=== PATIENT | male | born 1955 | race Caucasian/White ===

== ENCOUNTER 2018-08-13 20:22 | Emergency (ER) | payer OTHER ==
--- NOTE | 2018-08-13 21:09 | ED Physician Documentation ---
Chest Pain - HPI Stated Complaint: Short of breath, Light head, Diaphoresis Chief Complaint: Chest Pain Additional Information: Patient presents to ED with chest pressure, shortness of breath and dizziness since 1430 this afternoon. Patient states his symptoms began around 1430 today after he thought he was going to be arrested. The chest pressure was substernal, nonradiating, 5/10 with associated shortness of breath and ultimately lightheadedness. He states his symptoms resolved once he arrived to the hospital and he felt like he was in a place he could not be arrested. He requests to be admitted to the hospital until August 29, which is his court date, so he cannot be arrested. Onset: hours (7) Timing: sudden onset, resolved on arrival to ED Duration: constant Last known Well Date: 08/13/18 Last Known Well Time: 14:29 Context: emotional upset Severity: moderate Quality: pressure Chest Pain Radiation: no radiation Chest Pain Signs/Symptoms: diaphoresis, dizziness, dyspnea. denies: nausea, vomiting Worsened By: nothing Relieved By: nothing - ROS CONST: none MS/LYMPH: none GI/: none EYES/ENT: none SKIN/ENDO: none NEURO/PSYCH: anxiety - PAST HX OK risk factors: hypertension, diabetes Type 2, other (anxiety/depression) DVT/PE Risk Factors: none TAD/AAA risk factors: none Neuro deficit: none GI disease: none Lung disease: none Surgeries/Procedures: none Allergies/Adverse Reactions: Allergies Allergy/AdvReac Type Severity Reaction Status Date / Time No Known Drug Allergies Allergy Verified 08/13/18 20:49 Home Medications: Ambulatory Orders Medication Instructions Recorded Citalopram Hydrobromide [Celexa] 40 mg PO DAILY 09/03/13 Insulin Glargine,Hum.rec.anlog 30 units SQ HS 09/03/13 [Lantus] Lisinopril 5 mg PO DAILY 09/03/13 Metformin HCl [Glucophage] 1,000 mg PO BID 09/03/13 Paliperidone Palmitate [Invega 78 mg IM WEEK 09/03/13 Sustenna] Vits96/Iron Fum/Folic 1 each PO BID 09/03/13 [ Tablet] - SOCIAL HX Smoking History: non-smoker Alcohol Use: none Drug Use: none - FAMILY HX Family HX: none - VITAL SIGNS Vital Signs: Vital Signs Temp Pulse Resp BP Pulse Ox 77 16 131/69 100 08/13/18 20:22 08/13/18 20:22 08/13/18 20:22 08/13/18 20:22 - REVIEWED ASSESSMENTS Nursing Assessment Reviewed: Yes Vitals Reviewed: Yes Progress - Progress Progress: 2154 Patient is sleeping ED Results Lab/Radiology - Radiology Radiology Impressions: Report Submission Date: Aug 13, 2018 10:00:57 PM CDT Patient Study Name: LAW BURROWS Date: Aug 13, 2018 8:43:03 PM CDT Modality Type: DX Gender: M Description: CHEST 2VIEW : 57 Institution: [facility] Physician: HELEN ROSS Chest two views History: Manic. Self threatening. Findings: The lungs are clear. Obesity is observed, potentially accounting for mild superior mediastinal widening. Heart size and pulmonary vascularity are normal. There is no pleural effusion. Electronically signed on Aug 13, 2018 10:00:57 PM CDT by: Thee Solis - Orders Orders: ED Orders Category Date Time Status CHEST 2VIEW [RAD] Stat Exams 08/13/18 Ordered CBC/PLATELET/DIFF Routine Lab 08/13/18 Ordered CMP Routine Lab 08/13/18 Ordered TROPONIN I Stat Lab 08/13/18 Ordered LORazepam [Ativan] Med 08/13/18 21:04 Once 1 mg IV NOW ONE EKG WITH COMPARISON Stat Ther 08/13/18 Ordered Chest Pain Physical Exam - EXAM General Appearance: alert, anxious EENT: PRATIK Neck: No: lymphadenopathy Respiratory: no resp. distress, chest non-tender, nml breath sounds CVS: reg. rate & rhythm, no murmur Abdomen: soft, normal bowel sounds. No: tenderness Skin: warm/dry, normal color, other (pick renteria on abdomen/arms) Extremities: non-tender, no edema Neuro: oriented X3, CN's nml as tested, motor nml Discharge Clincal Impression: Stress at home, Anxiety as acute reaction to gross stress, Non-cardiac chest pain Referrals: José Luis Smith MD [Primary Care Provider] - 2 Days Additional Instructions: 1. Continue home medications as previously prescribed 2. Drink plenty of fluids to maintain proper hydration. Avoid Caffeine or alcohol 3. Follow up with PCP within 1 week 4. Return to ER for new or worsening symptoms. Condition: Stable Disposition: 01 HOME, SELF-CARE Decision to Admit: NO Date of Decison to Admit: 08/13/18 Decision Time: 22:04
[2018-08-13 21:11] LABS: MEAN CORPUSCULAR HEMOGLOBIN 30.8 pg (28.0-34.0); MONOCYTES % 5.2 % (0.0-11.0)
[2018-08-13 21:12] LABS: BASOPHILS % 0.9 % (0.0-1.5); EOSINOPHILS % 2.1 % (0.0-6.8); NEUTROPHILS # 6.4 # k/uL (1.4-7.7)
[2018-08-13] MEDS: LORazepam 2 MG/ML VIAL IV ONE (21:14)
[2018-08-13 21:32] LABS: eGFR (Non-African) > 60
--- NOTE | 2018-08-13 22:08 | Diagnostic Imaging Report ---
HELEN ROSS [facility] [id number] [facility].[address] [address] Report Submission Date: Aug 13, 2018 10:00:57 PM CDT Patient Study Name: LAW BURROWS Date: Aug 13, 2018 8:43:03 PM CDT Modality Type: DX Gender: M Description: CHEST 2VIEW : 57 Institution: [facility] Physician: HELEN ROSS Chest two views History: Manic. Self threatening. Findings: The lungs are clear. Obesity is observed, potentially accounting for mild superior mediastinal widening. Heart size and pulmonary vascularity are normal. There is no pleural effusion. Electronically signed on Aug 13, 2018 10:00:57 PM CDT by: Thee BILLY
[2018-08-13 22:21] VITALS: BP 108/64
== END 2018-08-13 22:23 | disposition home or self-care (01) ==
LOC: ED 20:22
DX: F41.1 Generalized anxiety disorder (principal); F43.0 Acute stress reaction; R07.89 Other chest pain
CPT/HCPCS: 36415; 71046; 80053; 84484; 85025; 93005; 96374; 99283; 99284; J2060; S1016

== ENCOUNTER 2019-04-09 11:44 | Emergency (ER) | payer OTHER ==
--- NOTE | 2019-04-09 12:09 | ED Physician Documentation ---
Shoulder Injury/Pain - HISTORIAN Historian: patient - HPI Chief Complaint: Shoulder Injury/ Pain Onset: other (months ago) Further Comments: yes (Clayton lives at the local assisted living facility who dropped him off at the ER. He was discharged from [facility] and returned to [place] with a xray report showing proximal humerus fracture. Patient states he does not know what he is suppose to do. Extensive amount of time spent with RNs and call to [facility]. Initially injury in July 2018 - patient has been seen 3 times at [facility], has follow up appointment with Dr Norman.) - ROS CONST: no problems CVS/RESP: none GI/: denies: nausea, vomiting, abdominal pain, problems urinating, other MS/SKIN/LYMPH: none NEURO: none - PAST HX Past History: diabetes Type 2, other (MR, ) Allergies/Adverse Reactions: Allergies Allergy/AdvReac Type Severity Reaction Status Date / Time No Known Drug Allergies Allergy Verified 04/09/19 12:35 Home Medications: Ambulatory Orders Medication Instructions Recorded Citalopram Hydrobromide [Celexa] 40 mg PO DAILY 09/03/13 Insulin Glargine,Hum.rec.anlog 30 units SQ HS 09/03/13 [Lantus] Lisinopril 5 mg PO DAILY 09/03/13 Metformin HCl [Glucophage] 1,000 mg PO BID 09/03/13 Paliperidone Palmitate [Invega 78 mg IM WEEK 09/03/13 Sustenna] Hydrocodone/Acetaminophen [[place] 1 each PO Q6 PRN #15 tablet 08/19/18 10-325 Tablet] Meloxicam [Mobic] 15 mg PO DAILY #60 tablet 08/19/18 - SOCIAL HX Smoking History: non-smoker - FAMILY HX Family History: denies: none - VITAL SIGNS Vital Signs: Vital Signs Temp Pulse Resp BP Pulse Ox 98.2 F 79 18 116/47 98 04/09/19 11:44 04/09/19 12:47 04/09/19 12:47 04/09/19 12:47 04/09/19 12:47 - REVIEWED ASSESSMENT Nursing Assessment Reviewed: Yes Vitals Reviewed: Yes Progress - Progress Progress: Extensive amount of time spent with patient explaining [facility] plan of care and follow up. Instructions sent to [place]. Shoulder Injury Physical Exam - Physical Exam General Appearance: mild distress Shoulder: deformity, limited ROM, limited flexion, limited extension. No: ecchymosis Upper Extremity: no injury below shoulder Neuro: sensation nml, motor nml Vascular: no vascular compromise, motor nml, sensation nml Skin: normal color, warm/dry, NR, INT, PAL, DR Respiratory: no resp. distress CVS: reg rate & rhythm Discharge Clincal Impression: Proximal humerus fracture Qualifiers: Encounter type: subsequent encounter Fracture type: closed Fracture morphology: unspecified fracture morphology Laterality: left Fracture healing: with delayed healing Qualified Code(s): S42.202G - Unspecified fracture of upper end of left humerus, subsequent encounter for fracture with delayed healing Referrals: José Luis Smith MD [Primary Care Provider] - 2 Days Additional Instructions: We consulted [facility] doctors. Their recommendation from your 08/16 visit was to start physical therapy. At this point you need a surgical consult with Dr. Norman at [facility]. He will evaluate you for surgery options. Condition: Stable Disposition: 01 HOME, SELF-CARE Decision to Admit: NO Decision Time: 12:30
[2019-04-09 12:52] VITALS: BP 116/47
== END 2019-04-09 12:47 | disposition home or self-care (01) ==
LOC: ED 11:44
DX: S42.202G Unspecified fracture of upper end of left humerus, subsequent encounter for fracture with delayed healing (principal)
CPT/HCPCS: 99281; 99282